=== PATIENT | female | born 1930 | race Hispanic/Latino ===

== ENCOUNTER 2017-06-17 14:07 | Outpatient (CLI) | payer MEDICARE, OTHER ==
--- NOTE | 2017-06-17 14:41 | XRay Report ---
PA and lateral chest: Chest pain. 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 The interstitial markings just above the left costophrenic angle appears somewhat more prominent than elsewhere but there is no infiltrate or nodule. The lungs otherwise appear generally clear. The heart is normal in size and there is no vascular congestion. There is spinal hardware in the upper lumbar spine and sclerotic/discogenic changes just above the hardware in the lower thoracic spine. No prior study for comparison. Impression: Doubt any acute cardiopulmonary disease. Chronic appearing changes.
== END 2017-06-17 14:08 | disposition home or self-care (01) ==
LOC: XRAY 14:07
PROVIDERS: ATTEND Internal Medicine
DX: R07.9 Chest pain, unspecified (principal); Z90.12 Acquired absence of left breast and nipple
CPT/HCPCS: 71020

== ENCOUNTER 2017-12-30 10:29 | Outpatient (CLI) | payer MEDICARE, OTHER ==
--- NOTE | 2017-12-30 11:40 | Cat Scan Report ---
FINAL REPORT EXAM: CT HEAD/BRAIN WO CON HISTORY: DIZZINESS AND GIDDINESS TECHNIQUE: CT of the head was performed. No intravenous contrast was administered. PRIORS: None. FINDINGS: There is moderate cerebral atrophy. There is prominent ischemic change seen in the white matter. 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 There is no evidence of intracranial hemorrhage. There is no edema, mass effect or midline shift. There are no abnormal extra-axial fluid collections. The ventricles are appropriate for brain volume. There is no skull fracture seen. The visualized aspects of the sinuses are clear. IMPRESSION: White matter changes likely reflect chronic microvascular ischemic disease. There is no acute intracranial abnormality seen.
== END 2017-12-30 10:30 | disposition home or self-care (01) ==
LOC: CT 10:29
PROVIDERS: ATTEND Nurse Practitioner
DX: I63.9 Cerebral infarction, unspecified (principal); G31.9 Degenerative disease of nervous system, unspecified
CPT/HCPCS: 70450

== ENCOUNTER 2018-02-23 09:40 | Outpatient (CLI) | payer MEDICARE, OTHER ==
--- NOTE | 2018-02-28 12:25 | Vascular Lab Report ---
Left Lower Extremity Venous Duplex Study: Reason for Exam: Pain and swelling of the left lower extremity. Comments on the Right: A limited duplex study was done of the proximal veins of the right lower extremity. All veins visualized are freely compressible without evidence of internal echogenicity. Flow is spontaneous and phasic throughout. No evidence of acute or chronic thrombus is seen in any of the vessels visualized. Comments on the Left: All veins visualized are freely compressible without evidence of internal echogenicity. Flow is spontaneous and phasic throughout. No evidence of acute or chronic thrombus is seen in any of the vessels visualized. A soft tissue change in the left knee area is consistent with a Mcknight's cyst. Impression: No evidence of acute or chronic deep venous thrombosis in the left lower extremity. A soft tissue change in the left knee area is consistent with a Mcknight's cyst.
== END 2018-02-23 09:41 | disposition home or self-care (01) ==
LOC: VAS 09:40
PROVIDERS: ATTEND Nurse Practitioner
DX: L03.116 Cellulitis of left lower limb (principal); M79.89 Other specified soft tissue disorders; R60.0 Localized edema

== ENCOUNTER 2018-06-07 22:58 | Emergency (ER) | payer MEDICARE, OTHER ==
[2018-06-07 23:17] VITALS: BP 188/106
[2018-06-07] MEDS ORDERED: BOOSTRIX IM ONE (23:49)
[2018-06-07] MEDS ORDERED: KEFLEX PO ONE (23:52)
[2018-06-07] MEDS ORDERED: TYLENOL PO ONE (23:52)
--- NOTE | 2018-06-08 00:32 | Cat Scan Report ---
FINAL REPORT PROCEDURE: CT HEAD/BRAIN WO CON TECHNIQUE: Computerized tomography of the head was performed without contrast material. HISTORY: fall headache laceration COMPARISON: 12/30/2017 FINDINGS: Skull and scalp: There is a scalp hematoma of the right temporal region of the skull. No skull fracture.. Paranasal sinuses: Normal. Ventricles and subarachnoid spaces: Normal. Cerebrum: There is no evidence of acute intracranial hemorrhage, hematoma or infarction. Mild atrophy and slight periventricular deep white matter changes noted.. Cerebellum and brainstem: No evidence of hemorrhage, acute infarction or mass. Vasculature: Normal. Comments: None. IMPRESSION: There is no evidence of an acute intracranial process. Mild atrophy and slight periventricular deep white matter changes noted. There is a scalp hematoma over the right temporal region of the skull.
--- NOTE | 2018-06-08 00:34 | Cat Scan Report ---
FINAL REPORT PROCEDURE: CT CERVICAL SPINE WO CON TECHNIQUE: Computerized tomography of the cervical spine was performed from the skull base to T1 without contrast material. HISTORY: fall headache laceration COMPARISON: No prior studies are available for comparison. FINDINGS: The alignment of the vertebral segments is normal. The heights of the vertebral bodies are maintained. There is loss of disc space height at all levels. Moderate spur formation off of the vertebral bodies is identified at all levels. There is slight hypertrophy of the facets at all levels. No evidence of an acute fracture or dislocation of the cervical spine. The spinal canal is adequate at all levels. IMPRESSION: There is no evidence of an acute fracture or dislocation of the cervical spine. Moderate cervical spondylosis and degenerative disc changes as described..
--- NOTE | 2018-06-08 01:28 | Emergency Department Report ---
ED Fall HPI - General Chief Complaint: Fall Stated Complaint: FALL/HEAD LACERATION Time Seen by Provider: 06/07/18 23:47 Source: patient Mode of arrival: Ambulatory Limitations: No Limitations - History of Present Illness Initial Comments: Patient 87-year-old white female presents for a forehead laceration status post ground-level fall patient states I was walking and tripped over shoes and impacted her right forehead on my round coffee table there is no presyncopal episode there is no aura there is no dizziness no chest pain no lightheadedness no nausea vomiting 3 cm right forearm laceration bleeding controlled by direct pressure there was no LOC there is no neck pain no decreased vision no back pain no chest pain altered mental status CT brain and neck no fracture no bleed there is a small right temporal hematoma Complaint: fall Onset/Timin -: hour(s) Fall From: standing When Fall Occurred: 4-6 hours [employer] Fall Witnessed: no Place Fall Occurred: home Loss of Consciousness: none Prolonged Down Time?: no Symptoms Prior to Fall: none Location: head, face (right temporal laceration ) Severity: moderate Severity scale (0 -10): 5 Context: tripped/slipped Associated Symptoms: headache. denies: neck pain, numbness, weakness, chest paint, shortness of breath, abdominal pain, hematuria, unable to walk, lightheaded, vertigo, confusion - Related Data Previous Rx's Medication Instructions Recorded Last Taken Type cephALEXin [Keflex] 500 mg PO Q8HR #30 cap 06/08/18 Unknown Rx traMADol [Ultram] 50 mg PO Q6HR PRN #12 tablet 06/08/18 Unknown Rx Allergies Allergy/AdvReac Type Severity Reaction Status Date / Time codeine AdvReac Rash Unverified 06/17/17 14:08 Penicillins AdvReac Rash Unverified 06/17/17 14:07 [id number] Reductase AdvReac Rash Unverified 06/17/17 14:08 Inhibitor ED Review of Systems ROS: Stated complaint: FALL/HEAD LACERATION Other details as noted in HPI Constitutional: denies: chills, fever Eyes: denies: eye pain, eye discharge, vision change ENT: denies: ear pain, throat pain Respiratory: denies: cough, shortness of breath, wheezing Cardiovascular: denies: chest pain, palpitations Endocrine: no symptoms reported Gastrointestinal: denies: abdominal pain, nausea, diarrhea Genitourinary: denies: urgency, dysuria, discharge Musculoskeletal: denies: back pain, joint swelling, arthralgia Skin: other (forehead laceration ). denies: rash, lesions Neurological: denies: headache, weakness, paresthesias Psychiatric: denies: anxiety, depression Hematological/Lymphatic: denies: easy bleeding, easy bruising ED Past Medical Hx - Past Medical History Previous Medical History?: Yes - Surgical History Past Surgical History?: No - Social History Smoking Status: Never Smoker Substance Use Type: None - Medications Home Medications: Home Medications Medication Instructions Recorded Confirmed Last Taken Type cephALEXin [Keflex] 500 mg PO Q8HR #30 cap 06/08/18 Unknown Rx traMADol [Ultram] 50 mg PO Q6HR PRN #12 tablet 06/08/18 Unknown Rx ED Physical Exam - General Limitations: No Limitations General appearance: alert, in no apparent distress - Head Head exam: Present: normocephalic - Expanded Head Exam Expanded Head exam: Present: laceration. Absent: racoon eyes, mancilla's sign, general tenderness, tenderness of temporal artery, CSF rhinorrhea, CSF otorrhea 1 - 2 cm laceration right forehead , irregular bleeding controlled, - Eye Eye exam: Present: normal appearance, PERRL, EOMI. Absent: nystagmus, periorbital swelling, periorbital tenderness Pupils: Present: normal accommodation - ENT ENT exam: Present: mucous membranes moist - Expanded ENT Exam Expanded Ear exam: Present: normal external inspection Mouth exam: Present: normal external inspection Teeth exam: Present: normal inspection Throat exam: Positive: normal inspection - Neck Neck exam: Present: normal inspection, full ROM. Absent: tenderness, meningismus, lymphadenopathy, thyromegaly - Expanded Neck Exam Expanded Neck exam: Absent: tenderness, midline deformity, anterior neck swelling, thyroid mass, carotid bruit, tracheal deviation - Respiratory Respiratory exam: Present: normal lung sounds bilaterally, chest wall tenderness. Absent: wheezes, stridor - Cardiovascular Cardiovascular Exam: Present: regular rate, normal rhythm, normal heart sounds. Absent: systolic murmur, diastolic murmur, rubs, gallop - GI/Abdominal GI/Abdominal exam: Present: soft, normal bowel sounds. Absent: tenderness, mass , hernia - Rectal Rectal exam: Present: deferred - Extremities Exam Extremities exam: Present: normal inspection, full ROM, normal capillary refill. Absent: tenderness, pedal edema, joint swelling - Back Exam Back exam: Present: normal inspection, full ROM. Absent: tenderness, CVA tenderness (R), CVA tenderness (L), muscle spasm, paraspinal tenderness, vertebral tenderness, rash noted - Neurological Exam Neurological exam: Present: alert, oriented X3, CN II-XII intact, normal gait, reflexes normal. Absent: motor sensory deficit - Expanded Neurological Exam Expanded Patient oriented to: Present: person, place, time Speech: Present: fluid speech Cranial nerves: EOM's Intact: Normal, Gag Reflex: Normal, Tongue Deviation: Normal, Nystagmus: Normal, Facial Sensation: Normal, Facial Palsy with Forehead Movement: Normal, Facial Palsy without Forehead Movement: Normal Cerebellar function: Finger to Nose: Normal, Heel to Zambrano: Normal, Romberg: Normal Upper motor neuron: Will Neglect: Normal, Pronator Drift: Normal, Babinski Sign : Normal, Sensory Extinction: Normal Sensory exam: Upper Extremity Light Touch: Normal, Upper Extremity Pin Prick: Normal, Upper Extremity Temperature: Normal, UE 2 Point Discrimination: Normal, Lower Extremity Light Touch: Normal, Lower Extremity Pin Prick: Normal, Lower Extremity Temperature: Normal, LE 2 Point Discrimination: Normal Motor strength exam: RUE: 5, LUE: 5, RLE: 5, LLE: 5 DTR: bicep (R): 2+, bicep (L): 2+, tricep (R): 2+, tricep (L): 2+, knee (R): 2+ , knee (L): 2+, ankle (R): 2+, ankle (L): 2+ Best Eye Response ([place]): (4) open spontaneously Best Motor Response ([place]): (6) obeys commands Best Verbal Response ([place]): (5) oriented [place] Total: 15 - Psychiatric Psychiatric exam: Present: normal affect, normal mood - Skin Skin exam: Present: warm, dry, intact, normal color. Absent: rash ED Course Vital Signs 06/07/18 23:13 Temperature 98.7 F Pulse Rate 97 H Respiratory 18 Rate Blood Pressure 188/106 O2 Sat by Pulse 97 Oximetry - Laceration /Wound Repair Right Lateral Face Wound Location: face Wound Length (cm): 2 Wound's Depth, Shape: irregular Wound Explored: clean Irrigated w/ Saline (ccs): 60 Betadine Prep?: Yes Anesthesia: Lidocaine w/ Epi Volume Anesthetic (ccs): 2 Wound Debrided: minimal Wound Repaired With: sutures Suture Size/Type: 4:0, proline Number of Sutures: 12 Layer Closure?: No Sterile Dressing Applied?: Yes Progress: right temporal forehead laceration 2 cm include closed with 4-0 Prolene C procedure note anesthesia with 1% lidocaine with epi feel prepped with Betadine solution and irrigated with 60 mL of sterile saline and closed closed with 4-0 Prolene 12 running sutures control sterile dressing applied patient tolerated procedure with minimal distres patient given wound care instructions provided agreement and understanding and signed to home via POV with daughter ED Medical Decision Making - Radiology Data Radiology results: report reviewed, image reviewed CT head fracture no bleed no soft tissue abnormality CT C-spine normal alignment mild spondylosis O fraction of soft tissue abnormality - Medical Decision Making right temporal forehead laceration 2 cm include closed with 4-0 Prolene C procedure note anesthesia with 1% lidocaine with epi feel prepped with Betadine solution and irrigated with 60 mL of sterile saline and closed closed with 4-0 Prolene 12 running sutures control sterile dressing applied patient tolerated procedure with minimal distress Critical care attestation.: If time is entered above; I have spent that time in minutes in the direct care of this critically ill patient, excluding procedure time. ED Disposition Clinical Impression: Fall Qualifiers: Encounter type: initial encounter Qualified Code(s): W19.XXXA - Unspecified fall, initial encounter Forehead laceration Qualifiers: Encounter type: initial encounter Qualified Code(s): S01.81XA - Laceration without foreign body of other part of head, initial encounter Disposition: TO HOME OR SELFCARE Is pt being admited?: No Does the pt Need Aspirin: No Condition: Good Instructions: Laceration (ED), Minor Head Injury (ED), Acute Wound Care (ED) Additional Instructions: follow up with your doctor in 2-3 days for wound check 7-10 days for suture removal Prescriptions: cephALEXin [Keflex] 500 mg PO Q8HR #30 cap traMADol [Ultram] 50 mg PO Q6HR PRN #12 tablet PRN Reason: Pain Referrals: PRIMARY CARE, [Primary Care Provider] - 3-5 Days Forms: Work/School Release Form(ED) Time of Disposition: 01:41
== END 2018-06-08 01:50 | disposition home or self-care (01) ==
LOC: ED 22:58
DX: S01.81XA Laceration without foreign body of other part of head, initial encounter (principal); Z88.0 Allergy status to penicillin; Z88.5 Allergy status to narcotic agent; W01.0XXA Fall on same level from slipping, tripping and stumbling without subsequent striking against object, initial encounter; Y93.89 Activity, other specified; Y92.098 Other place in other non-institutional residence as the place of occurrence of the external cause; Y99.8 Other external cause status
CPT/HCPCS: 70450; 72125; 90471; 90715

== ENCOUNTER 2018-06-19 16:02 | Outpatient (CLI) | payer MEDICARE, OTHER ==
--- NOTE | 2018-06-19 17:34 | Cat Scan Report ---
FINAL REPORT EXAM: CT HEAD/BRAIN WO CON HISTORY: HEAD INJURY/HEADACHE TECHNIQUE: Noncontrast CT axial images of the brain. PRIORS: 07 June 2018. FINDINGS: No parenchymal mass, mass effect, hemorrhage, midline shift or hydrocephalus. No evidence of acute cortical infarct. No abnormal, extra-axial fluid or air collection. Patchy low density in the periventricular and subcortical white matter is nonspecific, but may relate to chronic small vessel ischemic change. Probable old lacunar infarct changes in the right basal ganglia. Age-related volume loss. Osseous calvarium grossly intact. Very mild residual edema or contusion again noted in the right frontotemporal scalp. IMPRESSION: 1. No acute intracranial findings. 2. Chronic ischemic and atrophic changes.
== END 2018-06-19 16:03 | disposition home or self-care (01) ==
LOC: CT 16:02
PROVIDERS: ATTEND Nurse Practitioner
DX: I67.82 Cerebral ischemia (principal); G31.9 Degenerative disease of nervous system, unspecified
CPT/HCPCS: 70450